=== PATIENT | female | born 1945 | race Caucasian/White ===

== ENCOUNTER → 2020-11-16 | Outpatient (CLI) | payer MEDICARE, BC ==
[~2020-11-16] MED LIST: ASPI-515 PO; ATOR40TA78 PO; CARV6.2512 PO; FURO-93 PO; LISI5TAB7 PO; PANT40TA3 PO; TICA90TA PO
== END | disposition home or self-care (01) ==
LOC: CVU 12:32
PROVIDERS: ATTEND Registered Nurse
DX: I11.9 Hypertensive heart disease without heart failure (principal); I42.9 Cardiomyopathy, unspecified; I44.7 Left bundle-branch block, unspecified; Z87.891 Personal history of nicotine dependence
CPT/HCPCS: 93306; 93356